=== PATIENT | male | born 1995 | race Caucasian/White ===

== ENCOUNTER → 2016-11-07 | Outpatient (CLI) | payer MEDICAID | LOC: M OUTALCOH 14:55 | PROVIDERS: ATTEND Psychiatry & Neurology Psychiatry | DX: F12.20 Cannabis dependence, uncomplicated (principal) ==

== ENCOUNTER 2016-12-04 16:00 | Outpatient (RCR) | payer MEDICAID | END 2016-12-10 | LOC: M OUTALCOH 16:00 | PROVIDERS: ATTEND Psychiatry & Neurology Psychiatry | DX: F12.20 Cannabis dependence, uncomplicated (principal); F17.200 Nicotine dependence, unspecified, uncomplicated ==

== ENCOUNTER 2017-01-08 16:00 | Outpatient (RCR) | payer MEDICAID | END 2017-01-10 | LOC: M OUTALCOH 16:00 | PROVIDERS: ATTEND Psychiatry & Neurology Psychiatry | DX: F12.20 Cannabis dependence, uncomplicated (principal); F17.200 Nicotine dependence, unspecified, uncomplicated ==

== ENCOUNTER 2019-01-27 00:33 | Emergency (ER) | payer MEDICAID ==
[~2019-01-27] VITALS: Ht 167.6 cm; Wt 68.2 kg
[2019-01-27 04:30] VITALS: BP 129/68
[2019-01-27] MEDS ORDERED: IBUPROFEN 600 MG TAB PO ONE (06:15)
[2019-01-27] MEDS ORDERED: CEPHALEXIN 500 MG CAP PO ONE (06:15)
[2019-01-27] MEDS ORDERED: KEFL500C17 PO (06:33)
== END 2019-01-27 06:48 | disposition home or self-care (01) ==
LOC: M ED 00:33
DX: L03.011 Cellulitis of right finger (principal)

== ENCOUNTER 2019-12-20 00:50 | Emergency (ER) | payer MEDICAID, OTHER ==
[~2019-12-20] VITALS: Ht 172.7 cm; Wt 72.3 kg
[~2019-12-20 00:50] MED LIST: KEFL500C17 PO
[2019-12-20] MEDS ORDERED: NS 1,000 ML IV ONE (01:00)
[2019-12-20 01:24] LABS: BASO % 0.3 % (0.0-1.0); EOS # 0.1 10^3/uL (0.0-0.5); EOS % 0.6 % (0.0-3.0); LYMPH # 2.6 10^3/uL (1.5-5.0); LYMPH % 23.2 % (24.0-44.0); MEAN CORPUSCULAR HEMOGLOBIN 31.5 pg (27.0-33.0); MEAN CORPUSCULAR HGB CONC 34.8 g/dl (32.0-36.5); MEAN CORPUSCULAR VOLUME 90.6 fl (80.0-96.0); MONO # 1.1 10^3/uL (0.0-0.8); MONO % 9.4 % (0.0-5.0); NEUTROPHILS # 7.5 10^3/uL (1.5-8.5); NEUTROPHILS % 66.1 % (36.0-66.0); PLATELET COUNT, AUTOMATED 276 10^3/uL (150-450); RED BLOOD COUNT 5.08 10^6/uL (4.30-6.10); WHITE BLOOD COUNT 11.4 10^3/uL (4.0-10.0)
[2019-12-20 02:07] LABS: ACETAMINOPHEN LEVEL < 2.0 UG/ML (10.0-30.0); ALBUMIN 4.3 GM/DL (3.2-5.2); ALT/SGPT 31 U/L (12-78); BILIRUBIN,DIRECT 0.2 MG/DL (0.0-0.2); BILIRUBIN,TOTAL 0.6 MG/DL (0.2-1.0); BLOOD UREA NITROGEN 12 MG/DL (7-18); CALCIUM LEVEL 9.2 MG/DL (8.5-10.1); CARBON DIOXIDE LEVEL 29 MEQ/L (21-32); CHLORIDE LEVEL 104 MEQ/L (98-107); CPK CREATINE PHOSPHOKINASE 324 U/L (39-308); CREATININE FOR GFR 0.79 MG/DL (0.70-1.30); ETHYL ALCOHOL (ETHANOL) < 0.003 % (0.000-0.010); GLOMERULAR FILTRATION RATE > 60.0 (>60); GLUCOSE, FASTING 92 MG/DL (70-100); POTASSIUM SERUM 4.1 MEQ/L (3.5-5.1); SALICYLATE LEVEL < 1.7 MG/DL (5.0-30.0); SODIUM LEVEL 139 MEQ/L (136-145); TOTAL PROTEIN 8.1 GM/DL (6.4-8.2)
[2019-12-20 03:12] LABS: AMPHETAMINES LEVEL URINE NEGATIVE (NEGATIVE); BARBITURATES URINE NEGATIVE (NEGATIVE); BENZODIAZEPINES URINE NEGATIVE (NEGATIVE); CANNABINOIDS URINE NEGATIVE (NEGATIVE); COCAINE METABOLITE URINE NEGATIVE (NEGATIVE); METHADONE URINE NEGATIVE (NEGATIVE); OPIATES URINE POSITIVE (NEGATIVE); PHENCYCLIDINE URINE NEGATIVE (NEGATIVE)
[2019-12-20 08:14] VITALS: BP 118/66
--- NOTE | 2019-12-20 20:35 | ECGEPIP ---
[facility] - ED Test Date: 2019-12-20 Pat Name: NARDA GANDHI Department: Room: - Gender: Male Inventory Control Supervisor: isaac : 1995 Requested By: QUIANA Morales Order Number: [id number] Reading MD: Carlee Hylton Measurements Intervals [place] Rate: 109 P: 51 AR: 128 QRS: 22 QRSD: 91 T: 28 QT: 323 QTc: 436 Interpretive Statements SINUS TACHYCARDIA ABNORMAL RHYTHM ECG NO PRIOR Electronically Signed on 12-20-2019 20:34:57 EDT by Carlee Hylton
== END 2019-12-20 08:18 | disposition home or self-care (01) ==
LOC: M ED 00:50
DX: F19.10 Other psychoactive substance abuse, uncomplicated (principal); A69.20 Lyme disease, unspecified
CPT/HCPCS: 36415; 80048; 80076; 80307; 82550; 84443; 85025; 93005; 93041; 94760; 96360; 96361; 99285; G0480

== ENCOUNTER 2020-02-09 21:22 | Emergency (ER) | payer OTHER ==
[~2020-02-09] VITALS: Ht 167.6 cm; Wt 63.6 kg
[2020-02-09] MEDS ORDERED: NS 1,000 ML IV ONE (21:45)
[2020-02-09 21:59] LABS: BASO % 0.3 % (0.0-1.0); EOS # 0.1 10^3/uL (0.0-0.5); EOS % 0.9 % (0.0-3.0); HEMATOCRIT 43.8 % (42.0-52.0); HEMOGLOBIN 15.9 g/dl (13.5-17.5); LYMPH # 2.7 10^3/uL (1.5-5.0); MEAN CORPUSCULAR HEMOGLOBIN 31.7 pg (27.0-33.0); MEAN CORPUSCULAR HGB CONC 36.3 g/dl (32.0-36.5); MEAN CORPUSCULAR VOLUME 87.4 fl (80.0-96.0); MONO # 0.9 10^3/uL (0.0-0.8); MONO % 8.5 % (0.0-5.0); NEUTROPHILS % 64.9 % (36.0-66.0); PLATELET COUNT, AUTOMATED 271 10^3/uL (150-450); RED BLOOD COUNT 5.01 10^6/uL (4.30-6.10); WHITE BLOOD COUNT 10.8 10^3/uL (4.0-10.0)
[2020-02-09 22:25] LABS: ALBUMIN 4.1 GM/DL (3.2-5.2); ALT/SGPT 35 U/L (12-78); BILIRUBIN,DIRECT 0.3 MG/DL (0.0-0.2); BILIRUBIN,TOTAL 1.2 MG/DL (0.2-1.0); BLOOD UREA NITROGEN 20 MG/DL (7-18); CALCIUM LEVEL 9.5 MG/DL (8.5-10.1); CARBON DIOXIDE LEVEL 29 MEQ/L (21-32); CHLORIDE LEVEL 104 MEQ/L (98-107); CPK CREATINE PHOSPHOKINASE 889 U/L (39-308); CREATININE FOR GFR 1.09 MG/DL (0.70-1.30); GLOMERULAR FILTRATION RATE > 60.0 (>60); GLUCOSE, FASTING 139 MG/DL (70-100); POTASSIUM SERUM 3.5 MEQ/L (3.5-5.1); SODIUM LEVEL 139 MEQ/L (136-145); TOTAL PROTEIN 7.8 GM/DL (6.4-8.2)
[2020-02-09] MEDS ORDERED: ONDA4TAB6 PO (23:22)
[2020-02-09] MEDS ORDERED: ONDANSETRON 4 MG ORAL DISINTEGRATING TAB PO ONE (23:30)
[2020-02-09 23:34] VITALS: BP 126/82
[2020-02-09 23:57] LABS: AMPHETAMINES LEVEL URINE NEGATIVE (NEGATIVE); BARBITURATES URINE NEGATIVE (NEGATIVE); BENZODIAZEPINES URINE NEGATIVE (NEGATIVE); CANNABINOIDS URINE POSITIVE (NEGATIVE); COCAINE METABOLITE URINE NEGATIVE (NEGATIVE); METHADONE URINE NEGATIVE (NEGATIVE); OPIATES URINE NEGATIVE (NEGATIVE); PHENCYCLIDINE URINE NEGATIVE (NEGATIVE)
--- NOTE | 2020-02-10 00:23 | ECGEPIP ---
[facility] - ED Test Date: 2020-02-09 Pat Name: NARDA GANDHI Department: Room: - Gender: Male Licensed Physical Therapy Assistant: EFREN : 1995 Requested By: JUDITH TIDWELL PA-C. Order Number: [id number] Reading MD: Alan Grider Measurements Intervals [place] Rate: 90 P: 57 LA: 161 QRS: 33 QRSD: 97 T: 17 QT: 357 QTc: 439 Interpretive Statements SINUS RHYTHM NONSPECIFIC T WAVE ABNORMALITIES RATE CHANGE COMPARED TO 12/20/19 Electronically Signed on 02-10-2020 0:23:40 EDT by Alan Grider
== END 2020-02-09 23:55 | disposition home or self-care (01) ==
LOC: EDBD 21:22 → M ED 21:22
DX: E86.0 Dehydration (principal); F11.10 Opioid abuse, uncomplicated; R11.2 Nausea with vomiting, unspecified; F41.9 Anxiety disorder, unspecified; F32.9 Major depressive disorder, single episode, unspecified; F17.200 Nicotine dependence, unspecified, uncomplicated
CPT/HCPCS: 80048; 80076; 80307; 82550; 83605; 85025; 93005; 96360; 96361; 99284; Q0162

== ENCOUNTER → 2020-02-21 | Outpatient (REF) ==
[~2020-02-21] MED LIST changes: +ONDA4TAB6 PO
== END ==
LOC: M LAB 09:36
DX: Z02.89 Encounter for other administrative examinations (principal)